=== PATIENT | female | born 1965 | race American Indian/Alaskan Native ===

== ENCOUNTER 2016-12-28 06:42 | Day surgery (SDC) | payer OTHER ==
[~2016-12-28 06:42] MED LIST: Sodium Chloride 0.9% 10 ML Syringe FLUSH PRN; Sodium Chloride 0.9% 2.5 ML Syringe FLUSH PRN; ceFAZolin 2 GM in Premix Bag 1 BAG IV ONE
--- NOTE | 2016-12-28 07:13 | PCM.PREANE ---
Preanesthetic Assessment - Anesthesia/Transfusion/Family Hx Anesthesia History: Prior Anesthesia Without Reaction Other Type of Anesthesia Reaction Comment: states she is hard to wake up after anesthesia Family History of Anesthesia Reaction: No Transfusion History: Prior Transfusion Without Reaction Intubation History: Unknown - Review of Systems General: No Symptoms Pulmonary: No Symptoms Cardiovascular: No Symptoms Gastrointestinal: No Symptoms Neurological: No Symptoms Other: Reports: None - Physical Assessment Height: 1.52 m Weight: 62.596 kg ASA Class: 3 Mental Status: Alert & Oriented x3 Airway Class: Mallampati = 2 Dentition: Reports: Normal Dentition Thyro-Mental Finger Breadths: 3 Mouth Opening Finger Breadths: 3 ROM/Head Extension: Full Lungs: Clear to Auscultation, Normal Respiratory Effort Cardiovascular: Regular Rate, Regular Rhythm - Lab Values: Laboratory Last Values Blood Type A POSITIVE 12/27/16 10:36 Antibody Screen NEGATIVE 12/27/16 10:36 - Allergies Allergies/Adverse Reactions: Allergies Allergy/AdvReac Type Severity Reaction Status Date / Time No Known Allergies Allergy Verified 07/13/14 09:32 - Blood Blood Available: No - Anesthesia Plan Pre-Op Medication Ordered: None - Acknowledgements Anesthesia Type Planned: General Anesthesia Pt an Appropriate Candidate for the Planned Anesthesia: Yes Alternatives and Risks of Anesthesia Discussed w Pt/Guardian: Yes Pt/Guardian Understands and Agrees with Anesthesia Plan: Yes PreAnesthesia Questionnaire Cardiovascular History: Reports: High Cholesterol, Hypertension, [place], Stents (x1 3 years ago) Respiratory History: Reports: COPD, Other (See Below) (she can walk a mile before SOB) Other Respiratory History: pneumonia in the past Genitourinary History: Reports: 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: Endocrine/Metabolic History: Reports: Diabetes, Type II, Obesity/BMI 30+ Hematologic History: Reports: Blood Transfusion(s) Oncologic (Cancer) History: Reports: Breast - Past Surgical History Head Surgeries/Procedures: Reports: None Cardiovascular Surgical History: Reports: Coronary Artery Stent Female Surgical History: Reports: Section, Mastectomy Other Female Surgeries/Procedures: rt mastectomy for breast cancer Oncologic Surgical History: Reports: Mastectomy Other Oncologic Surgeries/Procedures: rt mastectomy - SUBSTANCE USE Smoking Status *Q: Current Every Day Smoker (1 ppd) Tobacco Use Within Last Twelve Months: Cigarettes Days Per Week of Alcohol Use: 0 Recreational Drug Use History: No - HOME MEDS Home Medications: Home Meds Albuterol [IJD: Albuterol HFA] 2 puff INH ASDIRECTED PRN 12/25/16 [History] Aspirin 325 mg PO DAILY 12/25/16 [History] Aspirin [Rabun Aspirin] 81 mg PO DAILY 12/25/16 [History] Clopidogrel Bisulfate [Plavix] 75 mg PO DAILY 12/25/16 [History] Lisinopril 10 mg PO BEDTIME 12/25/16 [History] Metoprolol Succinate 25 mg PO DAILY 12/25/16 [History] Nitroglycerin [Nitrostat] 1 tab SL ASDIRECTED PRN 12/25/16 [History] atorvaSTATin Calcium [Atorvastatin Calcium] 20 mg PO DAILY 12/25/16 [History] metFORMIN HCl [Metformin HCl] 500 mg PO BEDTIME 12/25/16 [History] - CURRENT (IN HOUSE) MEDS Current Meds: Current Medications Lactated Ringer's (Ringers, Lactated) 1,000 mls @ 125 mls/hr IV ASDIRECTED TRUDI Sodium Chloride (Saline Flush) 10 ml FLUSH ASDIRECTED PRN PRN Reason: Keep Vein Open Sodium Chloride (Saline Flush) 2.5 ml FLUSH ASDIRECTED PRN PRN Reason: Keep Vein Open Discontinued Medications Cefazolin Sodium/Dextrose 2 gm (/ Premix) 50 mls @ 100 mls/hr IV ONETIME ONE Stop: 12/27/16 10:41
[2016-12-28] MEDS ORDERED: Rocuronium 10 MG/ML 10 ML Syringe ONE (07:21)
[2016-12-28] MEDS ORDERED: fentaNYL 100 MCG/2 ML SDV ONE ×2 (07:21→08:26)
[2016-12-28] MEDS ORDERED: HYDROmorphone 2 MG/ML Syringe ONE (07:21)
[2016-12-28] MEDS ORDERED: Lidocaine 2% 5 ML SDV ONE (07:21)
[2016-12-28] MEDS ORDERED: Propofol 200 MG/20 ML SDV ONE (07:21)
[2016-12-28] MEDS ORDERED: Midazolam 1 MG/ML 2 ML SDV ONE (07:21)
[2016-12-28] MEDS ORDERED: Ondansetron 4 MG/2 ML SDV ONE (07:21)
[2016-12-28] MEDS: Lactated Ringers 1,000 ML IV SCH ×2 (07:25→17:02)
[2016-12-28] MEDS ORDERED: Fluorescein 5 ML Vial ONE (07:27)
[2016-12-28] MEDS ORDERED: Octyl 2-Cyanoacrylate 1 Tube ONE (07:40)
[2016-12-28] MEDS ORDERED: Phenylephrine/Normal Saline 100 MCG/ML 10 ML Syringe ONE (08:33)
[2016-12-28] MEDS ORDERED: fentaNYL 100 MCG/2 ML SDV IVPUSH PRN (08:52)
[2016-12-28] MEDS ORDERED: Neostigmine Methylsulfate 1 MG/ML 5 ML Syringe ONE (10:11)
[2016-12-28] MEDS ORDERED: Ketorolac 30 MG/ML SDV ONE (10:16)
[2016-12-28] MEDS ORDERED: Morphine 2 MG/ML Syringe IVPUSH PRN (10:25)
[2016-12-28] MEDS ORDERED: Promethazine 25 MG/ML SDV IM PRN (10:25)
[2016-12-28] MEDS ORDERED: Ketorolac 30 MG/ML SDV IVPUSH PRN (10:25)
[2016-12-28] MEDS ORDERED: Acetaminophen/oxyCODONE 325-5 MG Tab PO PRN (10:25)
[2016-12-28] MEDS ORDERED: Ondansetron 4 MG/2 ML SDV IVPUSH PRN (10:25)
[2016-12-28] MEDS ORDERED: Morphine 4 MG/ML Syringe IVPUSH PRN (10:25)
[2016-12-28] MEDS ORDERED: Ketorolac 30 MG/ML SDV IVPUSH ONE (10:25)
--- NOTE | 2016-12-28 10:30 | PCM.OPNOTE ---
- General Post-Op/Procedure Note Date of Surgery/Procedure: 12/28/16 Operative Procedure(s): TLH BSO Cysto Pre Op Diagnosis: Bleeding Post-Op Diagnosis: Same Anesthesia Technique: General ET Tube Primary Surgeon: Kanu Martins Fabric Designer: Lita Melendez EBL in mLs: 150 Complications: accedental intry to the bladder Condition: Good
--- NOTE | 2016-12-28 11:26 | OR ---
SURGEON: Kanu Martins MD DATE OF PROCEDURE: 12/28/2016 PREOPERATIVE DIAGNOSIS: Menometrorrhagia. POSTOPERATIVE DIAGNOSIS: Menometrorrhagia. OPERATION PERFORMED: Total laparoscopic hysterectomy, laparoscopic bilateral salpingo-oophorectomy, cystoscopy, and repair of accidental bladder hole. EMERGENCY COMMUNICATIONS DISPATCHER: JOSE ROBERTO Warren ANESTHESIA: General endotracheal intubation, Jovita Carreno and Dr. Cody. ESTIMATED BLOOD LOSS: 150 mL. COMPLICATIONS: Accidental entry into the bladder during the dissection of the bladder from the lower part of the uterus and the cervix due to dense adhesion and because the patient had previous sections x2. INDICATION FOR SURGERY: Refer to the admit note. PROCEDURE IN DETAIL: The patient was brought to the OR, properly identified. After adequate level of anesthesia, the patient placed in lithotomy position, prepped and draped in sterile fashion as usual. A Posada catheter was placed into the bladder for drainage and the [employer] surgical uterine manipulator was placed in place in the uterus and the balloon was inside the uterus in the vagina was inflated adequately. Then the operation shifted abdominally. Stab wound done beneath the umbilicus. The Veress needle was placed in the peritoneal cavity and that cavity was insufflated with 6 L of carbon dioxide. The skin incision was enlarged to accommodate 5 mm trocar and utilizing the Visiport technique, the peritoneal cavity was entered. Once we were entered, we encountered adhesion into the anterior abdominal wall, was going down to the bladder. A 10-12 trocar placed in the left iliac fossa and 5 mm trocar in the right. Using the Harmonic scapula, the adhesion between the omentum and the anterior abdominal wall was lysed without any problem restoring normal anatomy. However, it is noted at this time the bladder is pulled all the way almost to the mid part of the uterus and there was adhesion around the cervix. We proceeded by doing the hysterectomy by using the Nolan harmonic scapula, the superior pedicle coagulated transected. Tubes and ovaries included with the specimen. The round ligament was coagulated and transected in the same manner and then I started dissecting the bladder from the lower part of the uterus and the cervix. There was a very dense adhesion and the anatomy is rather a little bit difficult to identify, but with meticulous sharp and blunt dissection, I was able to dissect the bladder completely from the cervix and the lower uterine segment, and I noticed at this time there is blood tinge in the urine, so I theorized that probably there is an accidental hole in the bladder and later on we will assess that at the time of the cystoscopy. Then skeletonization of the uterine vessel was done and these vessels coagulated and transected at the level of the internal rings and then using the Nolan Harmonic scapula, circular incision in the vaginal mucosa was done, detaching the cervix from its attachment to the vagina. Thorough irrigation of the pelvis and inspection of all the pedicle, there was no oozing, no bleeding. I closed the vaginal cuff laparoscopically using 2-0 PDS interrupted suture. After that, I asked the anesthesiologist to give the patient fluorescein and then I filled the bladder with 300 mL of normal saline and then I noticed there was about 5 mm hole on the top of the bladder that was repaired in 2 layers using 3-0 Vicryl laparoscopically without any problem. Then, the bladder refilled up to 500 mL of normal saline. Inspecting the bladder completely, there was no leak and there was no oozing, so satisfied with these findings, the bladder is empty and then I performed cystoscopy. The bladder seems to be fine and then the ureteric orifices were seen with the dye coming from both of them. Thus, the patency of both ureters verified. Satisfied with these findings, the procedure ended. The instrument and sponge count was correct. The patient tolerated the procedure well, went to recovery room in stable general condition. PAUL SAMANO /[id number]
[2016-12-28] MEDS: Acetaminophen/oxyCODONE 325-5 MG Tab PO PRN ×2 (16:42→22:54)
[2016-12-29] MEDS: Lactated Ringers 1,000 ML IV SCH (01:48)
[2016-12-29 05:36] LABS: CHLORIDE,CL 113 mmol/L (98-110); SODIUM,NA 139 mmol/L (136-146)
--- NOTE | 2016-12-29 08:12 | PCM48HPAN ---
Post Anesthesia Note - EVALUATION WITHIN 48HRS OF ANESTHETIC Vital Signs in Normal Range: Yes Patient Participated in Evaluation: Yes Respiratory Function Stable: Yes Airway Patent: Yes Cardiovascular Function Stable: Yes Hydration Status Stable: Yes Pain Control Satisfactory: Yes Nausea and Vomiting Control Satisfactory: Yes Mental Status Recovered: Yes
[2016-12-29 08:19] VITALS: BP 136/63
--- NOTE | 2016-12-29 08:59 | PCM.SURGPN ---
- General Info Date of Service: 12/29/16 POD#: 1 Functional Status: Reports: Pain Controlled - Review of Systems General: Reports: No Symptoms HEENT: Reports: No Symptoms Pulmonary: Reports: No Symptoms Cardiovascular: Reports: No Symptoms Gastrointestinal: Reports: No Symptoms Genitourinary: Reports: No Symptoms Musculoskeletal: Reports: No Symptoms Skin: Reports: No Symptoms Neurological: Reports: No Symptoms Psychiatric: Reports: No Symptoms - Patient Data Vitals - Most Recent: Last Vital Signs Temp 36.9 C 12/29/16 08:18 Pulse 63 12/29/16 08:18 Resp 16 12/29/16 08:18 BP 136/63 12/29/16 08:18 Pulse Ox 95 12/29/16 08:18 Weight - Most Recent: 62.596 kg I&O - Last 24 Hours: Intake & Output 12/28/16 12/29/16 12/29/16 22:59 06:59 14:59 Intake Total 571 1450 Output Total 200 2100 Balance 371 -650 Lab Results Last 24 Hrs: Laboratory Results - last 24 hr 12/28/16 12/28/16 12/29/16 Range/Units 07:55 10:43 05:06 WBC 10.03 (4.0-11.0) K/uL RBC 3.63 L (4.30-5.90) M/uL Hgb 11.4 L (12.0-16.0) g/dL Hct 34.8 L (36.0-46.0) % MCV 95.9 (80.0-98.0) fL MCH 31.4 (27.0-32.0) pg MCHC 32.8 (31.0-37.0) g/dL RDW Std Deviation 47.6 (28.0-62.0) fl RDW Coeff of Reginaldo 14 (11.0-15.0) % Plt Count 160 (150-400) K/uL MPV 10.60 (7.40-12.00) fL Neut % (Auto) 67.9 (48.0-80.0) % Lymph % (Auto) 23.2 (16.0-40.0) % Coleman % (Auto) 7.2 (0.0-15.0) % Eos % (Auto) 1.5 (0.0-7.0) % Baso % (Auto) 0.2 (0.0-1.5) % Neut # (Auto) 6.8 H (1.4-5.7) K/uL Lymph # (Auto) 2.3 (0.6-2.4) K/uL Coleman # (Auto) 0.7 (0.0-0.8) K/uL Eos # (Auto) 0.2 (0.0-0.7) K/uL Baso # (Auto) 0.0 (0.0-0.1) K/uL Nucleated RBC % 0.0 /100WBC Nucleated RBCs # 0 K/uL Sodium (136-146) mmol/L Potassium (3.5-5.1) mmol/L Chloride (98-110) mmol/L Carbon Dioxide (21-31) mmol/L BUN (6.0-23.0) mg/dL Creatinine (0.6-1.5) mg/dL Est Cr Clr Drug Dosing mL/min Estimated GFR (MDRD) ml/min Glucose (60-110) mg/dL POC Glucose 97 123 H (60-110) mg/dL Calcium (8.8-10.8) mg/dL 12/29/16 Range/Units 05:06 WBC (4.0-11.0) K/uL RBC (4.30-5.90) M/uL Hgb (12.0-16.0) g/dL Hct (36.0-46.0) % MCV (80.0-98.0) fL MCH (27.0-32.0) pg MCHC (31.0-37.0) g/dL RDW Std Deviation (28.0-62.0) fl RDW Coeff of Reginaldo (11.0-15.0) % Plt Count (150-400) K/uL MPV (7.40-12.00) fL Neut % (Auto) (48.0-80.0) % Lymph % (Auto) (16.0-40.0) % Coleman % (Auto) (0.0-15.0) % Eos % (Auto) (0.0-7.0) % Baso % (Auto) (0.0-1.5) % Neut # (Auto) (1.4-5.7) K/uL Lymph # (Auto) (0.6-2.4) K/uL Coleman # (Auto) (0.0-0.8) K/uL Eos # (Auto) (0.0-0.7) K/uL Baso # (Auto) (0.0-0.1) K/uL Nucleated RBC % /100WBC Nucleated RBCs # K/uL Sodium 139 (136-146) mmol/L Potassium 3.9 (3.5-5.1) mmol/L Chloride 113 H (98-110) mmol/L Carbon Dioxide 20 L (21-31) mmol/L BUN 7 (6.0-23.0) mg/dL Creatinine 0.6 (0.6-1.5) mg/dL Est Cr Clr Drug Dosing 81.47 mL/min Estimated GFR (MDRD) > 60.0 ml/min Glucose 98 (60-110) mg/dL POC Glucose (60-110) mg/dL Calcium 7.9 L (8.8-10.8) mg/dL Med Orders - Current: Current Medications Fentanyl (Sublimaze) 50 mcg IVPUSH .Q5MIN PRN PRN Reason: Pain Last Admin: 12/28/16 11:00 Dose: 50 mcg Lactated Ringer's (Ringers, Lactated) 1,000 mls @ 125 mls/hr IV ASDIRECTED [facility] Last Admin: 12/29/16 01:48 Dose: 125 mls/hr Ketorolac Tromethamine (Toradol) 30 mg IVPUSH Q6H PRN PRN Reason: Pain (severe 7-10) Stop: 01/02/17 10:25 Morphine Sulfate (Morphine) 2 mg IVPUSH Q2H PRN PRN Reason: Pain (severe 7-10) Morphine Sulfate (Morphine) 4 mg IVPUSH Q2H PRN PRN Reason: Pain (severe 7-10) Ondansetron HCl (Zofran) 4 mg IVPUSH Q6H PRN PRN Reason: Nausea/Vomiting Oxycodone/Acetaminophen (Percocet 325-5 Mg) 1 tab PO Q4H PRN PRN Reason: Pain (moderate 4-6) Oxycodone/Acetaminophen (Percocet 325-5 Mg) 2 tab PO Q4H PRN PRN Reason: Pain (moderate 4-6) Last Admin: 12/28/16 22:54 Dose: 2 tab Promethazine HCl (Phenergan) 25 mg IM Q6H PRN PRN Reason: Nausea/Vomiting Sodium Chloride (Saline Flush) 10 ml FLUSH ASDIRECTED PRN PRN Reason: Keep Vein Open Sodium Chloride (Saline Flush) 2.5 ml FLUSH ASDIRECTED PRN PRN Reason: Keep Vein Open Discontinued Medications Fentanyl (Sublimaze) Confirm Administered Dose 100 mcg .ROUTE .STK-MED ONE Stop: 12/28/16 07:22 Fentanyl (Sublimaze) Confirm Administered Dose 100 mcg .ROUTE .STK-MED ONE Stop: 12/28/16 08:27 Fluorescein Sodium (Ak-Fluor) Confirm Administered Dose 5 ml .ROUTE .STK-MED ONE Stop: 12/28/16 07:28 Glycopyrrolate () Confirm Administered Dose 1 mg .ROUTE .STK-MED ONE Stop: 12/28/16 10:12 Hydromorphone HCl (Dilaudid) Confirm Administered Dose 2 mg .ROUTE .STK-MED ONE Stop: 12/28/16 07:22 Cefazolin Sodium/Dextrose 2 gm (/ Premix) 50 mls @ 100 mls/hr IV ONETIME ONE Stop: 12/27/16 10:41 Last Admin: 12/28/16 12:20 Dose: Not Given Acetaminophen (Ofirmev) Confirm Administered Dose 100 mls @ as directed IV .STK- MED ONE Stop: 12/28/16 07:28 Ketorolac Tromethamine (Toradol) Confirm Administered Dose 30 mg .ROUTE .STK- MED ONE Stop: 12/28/16 10:17 Ketorolac Tromethamine (Toradol) 30 mg IVPUSH ONETIME ONE Stop: 12/28/16 10:26 Last Admin: 12/28/16 12:20 Dose: Not Given Lidocaine (Xylocaine-Mpf 2%) Confirm Administered Dose 5 ml .ROUTE .STK-MED ONE Stop: 12/28/16 07:22 Midazolam HCl (Versed 1 Mg/Ml) Confirm Administered Dose 2 mg .ROUTE .STK-MED ONE Stop: 12/28/16 07:22 Neostigmine Methylsulfate (Neostigmine) Confirm Administered Dose 5 mg .ROUTE .STK-MED ONE Stop: 12/28/16 10:12 Octyl Cyanoacrylate (Dermabond Advance) Confirm Administered Dose 1 applic .ROUTE .STK-MED ONE Stop: 12/28/16 07:41 Ondansetron HCl (Zofran) Confirm Administered Dose 4 mg .ROUTE .STK-MED ONE Stop: 12/28/16 07:22 Phenylephrine HCl (Phenylephrine In Ns 100 Mcg/Ml) Confirm Administered Dose 1 mg .ROUTE .STK-MED ONE Stop: 12/28/16 08:34 Propofol (Diprivan 20 Ml) Confirm Administered Dose 200 mg .ROUTE .STK-MED ONE Stop: 12/28/16 07:22 Rocuronium [place] (Zemuron) Confirm Administered Dose 100 mg .ROUTE .STK-MED ONE Stop: 12/28/16 07:22 - Exam Wound/Incisions: Healing Well General: Alert, Oriented HEENT: Pupils Equal Neck: Supple Lungs: Clear to Auscultation, Normal Respiratory Effort Cardiovascular: Regular Rate, Regular Rhythm GI/Abdominal Exam: Normal Bowel Sounds, Soft, Non-Tender, No Organomegaly, No Distention, No Abnormal Bruit, No Mass, Pelvis Stable Extremities: Normal Inspection, Normal Range of Motion, Non-Tender, No Pedal Edema, Normal Capillary Refill Skin: Warm, Dry, Intact Neurological: No New Focal Deficit Psy/Mental Status: Alert, Normal Affect, Normal Mood - Problem List Review Problem List Initiated/Reviewed/Updated: Yes - My Orders Last 24 Hours: Active Orders 24 hr Category Date Time Status Patient Status [ADT] Routine ADT 12/28/16 10:25 Active Notify Provider Vital Signs [RC] ASDIRECTED Care 12/28/16 10:25 Active RT Incentive Spirometry [RC] Q2HWA Care 12/28/16 10:25 Active Up With Assistance [RC] PER UNIT ROUTINE Care 12/28/16 10:25 Active Up ad Vicky [RC] PER UNIT ROUTINE Care 12/28/16 10:25 Active Urinary Catheter Removal [RC] Per Unit Routine Care 12/28/16 10:25 Active Regular Diet [DIET] Diet 12/28/16 Lunch Active Acetaminophen/oxyCODONE [Percocet 325-5 MG] Med 12/28/16 10:25 Active 1 tab PO Q4H PRN Acetaminophen/oxyCODONE [Percocet 325-5 MG] Med 12/28/16 10:25 Active 2 tab PO Q4H PRN Ketorolac [Toradol] Med 12/28/16 10:25 Active 30 mg IVPUSH Q6H PRN Morphine Med 12/28/16 10:25 Active 2 mg IVPUSH Q2H PRN Morphine Med 12/28/16 10:25 Active 4 mg IVPUSH Q2H PRN Ondansetron [Zofran] Med 12/28/16 10:25 Active 4 mg IVPUSH Q6H PRN Promethazine [Phenergan] Med 12/28/16 10:25 Active 25 mg IM Q6H PRN fentaNYL [Sublimaze] Med 12/28/16 08:52 Active 50 mcg IVPUSH .Q5MIN PRN Peripheral IV Discontinue [OM.PC] Routine Oth 12/28/16 10:25 Ordered Sequential Compression Device [OM.PC] Per Unit Routine Oth 12/28/16 10:25 Ordered Resuscitation Status Routine Resus Stat 12/28/16 10:25 Ordered Medication Orders Fentanyl (Sublimaze) 50 mcg IVPUSH .Q5MIN PRN PRN Reason: Pain Last Admin: 12/28/16 11:00 Dose: 50 mcg Lactated Ringer's (Ringers, Lactated) 1,000 mls @ 125 mls/hr IV ASDIRECTED TRUDI Last Admin: 12/29/16 01:48 Dose: 125 mls/hr Infusion: 12/29/16 01:02 Dose: 125 mls/hr Admin: 12/28/16 17:02 Dose: 125 mls/hr Infusion: 12/28/16 15:25 Dose: 125 mls/hr Admin: 12/28/16 07:25 Dose: 125 mls/hr Ketorolac Tromethamine (Toradol) 30 mg IVPUSH Q6H PRN PRN Reason: Pain (severe 7-10) Stop: 01/02/17 10:25 Morphine Sulfate (Morphine) 2 mg IVPUSH Q2H PRN PRN Reason: Pain (severe 7-10) Morphine Sulfate (Morphine) 4 mg IVPUSH Q2H PRN PRN Reason: Pain (severe 7-10) Ondansetron HCl (Zofran) 4 mg IVPUSH Q6H PRN PRN Reason: Nausea/Vomiting Oxycodone/Acetaminophen (Percocet 325-5 Mg) 1 tab PO Q4H PRN PRN Reason: Pain (moderate 4-6) Oxycodone/Acetaminophen (Percocet 325-5 Mg) 2 tab PO Q4H PRN PRN Reason: Pain (moderate 4-6) Last Admin: 12/28/16 22:54 Dose: 2 tab Admin: 12/28/16 16:42 Dose: 2 tab Promethazine HCl (Phenergan) 25 mg IM Q6H PRN PRN Reason: Nausea/Vomiting Sodium Chloride (Saline Flush) 10 ml FLUSH ASDIRECTED PRN PRN Reason: Keep Vein Open Sodium Chloride (Saline Flush) 2.5 ml FLUSH ASDIRECTED PRN PRN Reason: Keep Vein Open - Assessment Assessment (Free Text/Narrative):: Status post total laparoscopic hysterectomy laparoscopic bilateral salpingo- oophorectomy and cystoscopy patient have complication with accidental injury to the bladder which is repair of the time of the surgery without any problem I explained to the patient in the detail of complication in the management for this complication I informed the patient that she is need to go home with a Posada catheter and will remove it in the clinic 1 week after her surgery for nurses and I instructed the patient how to take care of the Posada catheter at home. - Plan Plan (Free Text/Narrative):: The patient will be going home today the postvasectomy instruction is given to the patient Percocet 7.5/325 was given for postoperative pain patient already have an appointment for postoperative checkup 1 week home have surgery
== END 2016-12-29 10:00 | disposition home or self-care (01) ==
LOC: MW.SDS 06:42 → MW.MS 10:25 → MW.SDS 12-29 10:00
PROVIDERS: ATTEND Obstetrics & Gynecology
DX: N80.0 Endometriosis of uterus (principal); N73.6 Female pelvic peritoneal adhesions (postinfective); N87.9 Dysplasia of cervix uteri, unspecified; N83.292 Other ovarian cyst, left side; N83.8 Other noninflammatory disorders of ovary, fallopian tube and broad ligament; F41.9 Anxiety disorder, unspecified; J44.9 Chronic obstructive pulmonary disease, unspecified; E78.5 Hyperlipidemia, unspecified; I10 Essential (primary) hypertension; E03.9 Hypothyroidism, unspecified; I25.2 Old myocardial infarction; E11.9 Type 2 diabetes mellitus without complications; F17.210 Nicotine dependence, cigarettes, uncomplicated; Z85.3 Personal history of malignant neoplasm of breast; Z87.01 Personal history of pneumonia (recurrent); Z79.02 Long term (current) use of antithrombotics/antiplatelets; Z79.82 Long term (current) use of aspirin; Z79.84 Long term (current) use of oral hypoglycemic drugs; Z79.899 Other long term (current) drug therapy; Z95.5 Presence of coronary angioplasty implant and graft; Z90.11 Acquired absence of right breast and nipple; Z98.890 Other specified postprocedural states
CPT/HCPCS: 36415; 58571; 80048; 81025; 82962; 85025; 86850; 86900; 86901; 88307; A9270; J1170; J1885; J2250; J2405; J3010; J7120; 00840; J2704

== ENCOUNTER 2021-02-22 07:15 | Day surgery (SDC) | payer OTHER ==
[~2021-02-22 07:15] MED LIST changes: +Lactated Ringers 1,000 ML IV SCH; +Sodium Chloride 0.9% 20 ML SDV IV PRN; -ceFAZolin 2 GM in Premix Bag 1 BAG IV ONE; +propofoL 50 ML ONE
--- NOTE | 2021-02-22 07:58 | PCM.PREANE ---
Preanesthetic Assessment - Anesthesia/Transfusion/Family Hx Anesthesia History: Prior Anesthesia Without Reaction Other Type of Anesthesia Reaction Comment: states she is hard to wake up after anesthesia Transfusion History: Prior Transfusion Without Reaction Intubation History: Unknown - Review of Systems General: No Symptoms Pulmonary: No Symptoms Cardiovascular: Dyspnea on Exertion Gastrointestinal: No Symptoms Neurological: No Symptoms Other: Reports: None - Physical Assessment NPO Status Date: 02/22/21 NPO Status Time: 00:00 Vital Signs: Last Vital Signs Temp 97.5 F 02/22/21 07:34 Pulse 85 02/22/21 07:34 Resp 14 02/22/21 07:34 BP 126/60 02/22/21 07:34 Pulse Ox 99 02/22/21 07:34 Height: 5 ft Weight: 120 lb ASA Class: 3 Mental Status: Alert & Oriented x3 Airway Class: Mallampati = 1 Dentition: Reports: Normal Dentition ROM/Head Extension: Full Lungs: Clear to Auscultation, Normal Respiratory Effort Cardiovascular: Regular Rate, Regular Rhythm - Allergies Allergies/Adverse Reactions: Allergies Allergy/AdvReac Type Severity Reaction Status Date / Time No Known Allergies Allergy Verified 02/16/21 13:05 - Acknowledgements Anesthesia Type Planned: General Anesthesia Pt an Appropriate Candidate for the Planned Anesthesia: Yes Alternatives and Risks of Anesthesia Discussed w Pt/Guardian: Yes Pt/Guardian Understands and Agrees with Anesthesia Plan: Yes PreAnesthesia Questionnaire HEENT History: Reports: Macular Degeneration, Other (See Below) Other HEENT History: wears glasses Cardiovascular History: Reports: High Cholesterol, Hypertension, [place], Stents Respiratory History: Reports: COPD, Other (See Below) Other Respiratory History: pneumonia in the past Gastrointestinal History: Reports: Chronic Constipation, Hemorrhoids Genitourinary History: Reports: None HEAD OF ETHICS AND COMPLIANCE History: Reports: Musculoskeletal History: Reports: None Neurological History: Reports: None Psychiatric History: Reports: Anxiety Endocrine/Metabolic History: Reports: Diabetes, Type II Other Endocrine/Metabolic History: diabetes is diet controlled Hematologic History: Reports: Blood Transfusion(s) Immunologic History: Reports: None Oncologic (Cancer) History: Reports: Breast Dermatologic History: Reports: None - Past Surgical History Head Surgeries/Procedures: Reports: None Cardiovascular Surgical History: Reports: Coronary Artery Stent Female Surgical History: Reports: Section, Hysterectomy, Mastectomy Other Female Surgeries/Procedures: rt mastectomy for breast cancer Oncologic Surgical History: Reports: Mastectomy Other Oncologic Surgeries/Procedures: rt mastectomy - SUBSTANCE USE Tobacco Use Status *Q: Former Tobacco User Tobacco Use Within Last Twelve Months: Cigarettes Recreational Drug Use History: No - HOME MEDS Home Medications: Home Meds Albuterol [IJD: Albuterol HFA] 2 puff INH ASDIRECTED PRN 12/25/16 [History] Nitroglycerin [Nitrostat] 1 tab SL ASDIRECTED PRN 12/25/16 [History] atorvaSTATin Calcium [Atorvastatin Calcium] 40 mg PO BEDTIME 12/25/16 [History] Furosemide 20 mg PO QAM 02/16/21 [History] Pnv No.95/Ferrous Fum/Folic AC [ Caplet] 1 tab PO DAILY 02/16/21 [History] Potassium Chloride [Klor-Con 10] 10 meq PO DAILY 02/16/21 [History] Telmisartan 40 mg PO DAILY 02/16/21 [History] carvediloL [Carvedilol] 12.5 mg PO BIDMEALS 02/16/21 [History] estradioL [Estrace 0.01% Vaginal Crm] 1 applic VAG BEDTIME 02/16/21 [History] - CURRENT (IN HOUSE) MEDS Current Meds: Current Medications Lactated Ringer's (Ringers, Lactated) 1,000 mls @ 125 mls/hr IV ASDIRECTED TRUDI Last Admin: 02/22/21 07:34 Dose: 125 mls/hr Documented by: Sodium Chloride (Sodium Chloride 0.9% 10 Ml Syringe) 10 ml FLUSH ASDIRECTED PRN PRN Reason: Keep Vein Open Sodium Chloride (Sodium Chloride 0.9% 2.5 Ml Syringe) 2.5 ml FLUSH ASDIRECTED PRN PRN Reason: Keep Vein Open Sodium Chloride (Sodium Chloride 0.9% 10 Ml Syringe) 10 ml FLUSH ASDIRECTED PRN PRN Reason: Keep Vein Open Sodium Chloride (Sodium Chloride 0.9% 2.5 Ml Syringe) 2.5 ml FLUSH ASDIRECTED PRN PRN Reason: Keep Vein Open Sodium Chloride (Sodium Chloride 0.9% 20 Ml Sdv) 10 ml IV ASDIRECTED PRN PRN Reason: IV Use Discontinued Medications Propofol (Diprivan 50 Ml) Confirm Administered Dose 50 mls @ as directed .ROUTE .STK-MED ONE Stop: 02/22/21 07:16
[2021-02-22] MEDS ORDERED: Ondansetron 4 MG/2 ML SDV ONE (08:51)
[2021-02-22] MEDS ORDERED: Lidocaine 2% 5 ML SDV ONE (08:51)
--- NOTE | 2021-02-22 09:18 | PCM.POSTAN ---
POST ANESTHESIA ASSESSMENT - MENTAL STATUS Mental Status: Alert, Oriented - VITAL SIGNS Vital Signs: Last Vital Signs Temp 97.5 F 02/22/21 07:34 Pulse 85 02/22/21 07:34 Resp 14 02/22/21 07:34 BP 126/60 02/22/21 07:34 Pulse Ox 99 02/22/21 07:34 - RESPIRATORY Respiratory Status: Respiratory Rate WNL, Airway Patent, O2 Saturation Stable - CARDIOVASCULAR CV Status: Pulse Rate WNL, Blood Pressure Stable - GASTROINTESTINAL GI Status: No Symptoms - POST OP HYDRATION Hydration Status: Adequate & Stable
--- NOTE | 2021-02-22 09:19 | PCM.OPNOTE ---
- General Post-Op/Procedure Note Date of Surgery/Procedure: 02/22/21 Operative Procedure(s): Screening colonoscopy Findings: Transverse colon polyp, sigmoid colon polyp x 4 Pre Op Diagnosis: Screening colonoscopy Post-Op Diagnosis: Transverse colon polyp x 1, sigmoid colon polyp x 4 Anesthesia Technique: General Mask Primary Surgeon: Dalila Harmon Condition: Good
--- NOTE | 2021-02-22 09:19 | PCM48HPAN ---
Post Anesthesia Note - EVALUATION WITHIN 48HRS OF ANESTHETIC Vital Signs in Normal Range: Yes Patient Participated in Evaluation: Yes Respiratory Function Stable: Yes Airway Patent: Yes Cardiovascular Function Stable: Yes Hydration Status Stable: Yes Pain Control Satisfactory: Yes Nausea and Vomiting Control Satisfactory: Yes Mental Status Recovered: Yes Vital Signs: Last Vital Signs Temp 97.5 F 02/22/21 07:34 Pulse 85 02/22/21 07:34 Resp 14 02/22/21 07:34 BP 126/60 02/22/21 07:34 Pulse Ox 99 02/22/21 07:34
[2021-02-22 09:52] VITALS: BP 111/61; PULSE 65
--- NOTE | 2021-02-22 15:53 | OR ---
SURGEON: DALILA HARMON MD DATE OF PROCEDURE: 02/22/2021 PREOPERATIVE DIAGNOSIS: Screening colonoscopy. POSTOPERATIVE DIAGNOSES: 1. Transverse colon polyp. 2. Sigmoid colon polyp x4. 3. Hyperplastic rectal and distal sigmoid colon polyps. PROCEDURE PERFORMED: Screening colonoscopy with polypectomy. PRIMARY SURGEON: Dalila Harmon MD ANESTHESIA: General mask. INSTRUMENT USED: Olympus colonoscope. EXTENT OF EXAM: To the cecum. PREPARATION: Good. LIMITATIONS: None. INDICATIONS FOR EXAMINATION: Patient is a 55-year-old female who presents for screening colonoscopy. I explained the procedure, expected perioperative course, and the risks. She verbalized understanding and wishes to proceed. PROCEDURE IN DETAIL: Patient was brought in to the endoscopy suite and placed in a left lateral decubitus position. A time-out was completed verifying the patient's name, age, date of , allergies, and procedure to be performed. Anesthesia was induced and continuous oxygen was provided via nasal cannula throughout the procedure. After adequate sedation was achieved, a digital rectal exam was performed. This exam was within normal limits. A well-lubricated colonoscope was advanced under direct visualization to the level of the cecum. The cecum was identified by both visual and anatomic landmarks. A photograph was taken of the cecal cap, however, I was unable to retroflex the scope within the cecum due to looping of the scope more proximally. The scope was then fully withdrawn while examining the color, texture, anatomy, and integrity of the mucosa from the cecum to the anal canal. The patient was found to have a small sessile polyp within the transverse colon. This was located distally. This was removed in piecemeal fashion using a cold biopsy forceps. In the sigmoid colon, particularly distal sigmoid colon, the patient had a large amount of hyperplastic-appearing polyps. The largest of these was removed and sent to Pathology labeled as sigmoid colon polyps. These were removed in piecemeal fashion using a cold biopsy forceps. The patient had multiple hyperplastic-appearing polyps in the rectum as well. Photographs of these were taken. The scope was then retroflexed within the rectum and this appeared normal. A photograph was taken. The scope was straightened out and fully withdrawn. The cecum to anus time was 20 minutes. The patient tolerated the procedure well and was transferred to the PACU in stable condition. ENDOSCOPIC DIAGNOSES: 1. Transverse colon polyp. 2. Sigmoid colon polyp x4. 3. Hyperplastic rectal and distal sigmoid colon polyps. RECOMMENDATION: Follow up in clinic in two weeks. FABIANA SAMANO /[id number] MTDD
== END 2021-02-22 09:55 | disposition home or self-care (01) ==
LOC: MW.SDS 07:15
PROVIDERS: ATTEND Surgery
DX: Z12.11 Encounter for screening for malignant neoplasm of colon (principal); K63.5 Polyp of colon; I10 Essential (primary) hypertension; J44.9 Chronic obstructive pulmonary disease, unspecified; E03.9 Hypothyroidism, unspecified; G47.30 Sleep apnea, unspecified; E11.9 Type 2 diabetes mellitus without complications; E78.00 Pure hypercholesterolemia, unspecified; I25.2 Old myocardial infarction; Z88.1 Allergy status to other antibiotic agents; Z79.899 Other long term (current) drug therapy; Z98.890 Other specified postprocedural states; Z87.891 Personal history of nicotine dependence
CPT/HCPCS: 45380; J2405; J2704; J7120

== ENCOUNTER 2021-06-21 20:03 | Emergency (ER) | payer OTHER ==
[2021-06-21] MEDS ORDERED: propofoL 100 ML ONE (20:09)
[2021-06-21] MEDS ORDERED: Sodium Chloride 0.9% 1,000 ML IV ONE ×2 (20:15→20:35)
[2021-06-21] MEDS ORDERED: fentaNYL 50 MCG/ML SDV IVPUSH PRN (20:17)
[2021-06-21] MEDS ORDERED: propofoL 100 ML IV SCH (20:30)
[2021-06-21 20:51] LABS: BLOOD UREA NITROGEN,BUN 16 mg/dL (7.0-18.0); CARBON DIOXIDE,CO2 17.7 mmol/L (21.0-32.0); CHLORIDE,CL 104 mmol/L (98-107); GLUCOSE RANDOM 195 mg/dL (74-106); POTASSIUM,K 3.6 mmol/L (3.5-5.1); SODIUM,NA 136 mmol/L (136-145)
[2021-06-21] MEDS ORDERED: Etomidate 2 MG/ML 20 ML SDV IVPUSH STA (20:55)
[2021-06-21] MEDS ORDERED: Succinylcholine/Sod PF 100 MG/5 ML SYRINGE IV STA (20:56)
[2021-06-21] MEDS ORDERED: Heparin Sodium 5,000 Units/ML Vial IVPUSH ONE (20:58)
[2021-06-21] MEDS ORDERED: Heparin Sodium/0.45% NaCl 500 ML IV SCH (21:00)
[2021-06-21] MEDS ORDERED: Aspirin 300 MG Supp RECTAL STA (21:00)
[2021-06-21] MEDS ORDERED: Iopamidol 755 MG/ML 500 ML Multipack Bottle IVPUSH STA (21:03)
[2021-06-21] MEDS ORDERED: Heparin Sodium/0.45% NaCl 500 ML ONE (21:10)
[2021-06-21] MEDS ORDERED: fentaNYL 50 MCG/ML SDV IVPUSH ONE (21:53)
[2021-06-21] MEDS ORDERED: Succinylcholine 200 MG/10 ML MDV IV STA (22:23)
[2021-06-21] MEDS ORDERED: fentaNYL 50 MCG/ML SDV IVPUSH STA (22:48)
[2021-06-21 23:33] VITALS: BP 126/87; PULSE 69
== END 2021-06-21 23:10 ==
LOC: MW.ED 20:03
DX: I21.4 Non-ST elevation (NSTEMI) myocardial infarction (principal); E78.00 Pure hypercholesterolemia, unspecified; I10 Essential (primary) hypertension; J44.9 Chronic obstructive pulmonary disease, unspecified; I25.2 Old myocardial infarction; I25.10 Atherosclerotic heart disease of native coronary artery without angina pectoris; E11.9 Type 2 diabetes mellitus without complications; Z79.899 Other long term (current) drug therapy; Z95.5 Presence of coronary angioplasty implant and graft; Z20.822 Contact with and (suspected) exposure to COVID-19
CPT/HCPCS: 31500; 36415; 36600; 51702; 70450; 71045; 71275; 72125; 74177; 80053; 80305; 80307; 81001; 82803; 83735; 83880; 84439; 84443; 84484; 84703; 85025; 85379; 85610; 85730; 87635; 93005; 96365; 96366; 96375; 96376; 99285; A9270; J0330; J1644; J2704; J3010; J3490; J7030; Q9967; 93010; 99291; U0002